=== PATIENT | male | born 1955 | race Caucasian/White ===

== ENCOUNTER 2017-07-22 16:46 | Emergency (ER) | payer OTHER ==
[2017-07-22 16:51] VITALS: BP 115/55; PULSE 86; TEMP 98; BMI 25.7
--- NOTE | 2017-07-22 16:58 | PDOC ---
Rapid Medical Evaluation Chief Complaint: Laceration Time Seen by Provider: 07/22/17 16:52 Medical Evaluation: Allergies Allergy/AdvReac Type Severity Reaction Status Date / Time Penicillins Allergy Severe Swelling Verified 07/22/17 16:49 Vital Signs Temp Pulse Resp BP Pulse Ox 98.0 F 86 18 115/55 97 07/22/17 16:49 07/22/17 16:49 07/22/17 16:49 07/22/17 16:49 07/22/17 16:49 07/22/17 16:52 I have performed a brief in-person evaluation of this patient. The patient presents with a chief complaint of: L pinky laceration 2/2 fan blade , needs tetanus Pertinent physical exam findings:~1-1/2 cm linear lac to ulnar aspect of middle phalanx of L 5th digit I have ordered the following:tetanus The patient will proceed to the ED for further evaluation. Discharge Disposition - Diagnosis Finger laceration Qualifiers: Encounter type: initial encounter Finger: little finger Damage to nail status: without damage Foreign body presence: unspecified Laterality: left Qualified Code(s): S61.217A - Laceration without foreign body of left little finger without damage to nail, initial encounter - Referrals - Patient Instructions - Post Discharge Activity
[2017-07-22] MEDS ORDERED: DIPHTH,PERTUSS(ACELL),TET 0.5 ML DISP.SYRIN IM ONE (17:05)
--- NOTE | 2017-07-22 18:03 | PDOC ---
History of Present Illness - General Chief Complaint: Laceration Stated Complaint: LACERATION Time Seen by Provider: 07/22/17 16:52 History Source: Patient Exam Limitations: No Limitations - History of Present Illness Initial Comments: 07/22/17 18:10 Patient is a 62-year-old male with no past medical history who presents to the emergency department today for laceration to his left fifth finger. Patient states he was trying to fix a ceiling fan when he felt it catch his finger. States he is able to bend and flex the finger. States his last tetanus shot is 5 years ago. Denies fevers, chills, weakness to the finger, numbness and tingling. Past History - Travel Traveled outside of the country in the last 30 days: No Close contact w/someone who was outside of country & ill: No - Past Medical History Allergies/Adverse Reactions: Allergies Allergy/AdvReac Type Severity Reaction Status Date / Time Penicillins Allergy Severe Swelling Verified 07/22/17 16:49 Home Medications: Ambulatory Orders NK [No Known Home Medication] 07/22/17 COPD: No Liver Disease: Yes - Immunization History Immunization Up to Date: Yes - Suicide/Smoking/Psychosocial Hx Smoking History: Current every day smoker Number of Cigarettes Smoked Daily: 20 Information on smoking cessation initiated: No Hx Alcohol Use: No Drug/Substance Use Hx: No Review of Systems - Review of Systems Able to Perform ROS?: Yes Comments:: 07/22/17 18:11 CONSTITUTIONAL: Absent: fever, chills, diaphoresis, generalized weakness, malaise, loss of appetite MUSCULOSKELETAL: Absent: myalgia, arthralgia, joint swelling SKIN: Present: laceration L 5th finger Absent: rash, itching, pallor HEMATOLOGIC/IMMUNOLOGIC: Absent: easy bleeding, easy bruising, lymphadenopathy, frequent infections NEUROLOGIC: Absent: headache, focal weakness or paresthesias, dizziness, unsteady gait, seizure, mental status changes, bladder or bowel incontinence Is the patient limited Sami proficient: No *Physical Exam - Vital Signs Last Vital Signs Temp Pulse Resp BP Pulse Ox 98.0 F 86 18 115/55 97 07/22/17 16:49 07/22/17 16:49 07/22/17 16:49 07/22/17 16:49 07/22/17 16:49 - Physical Exam Comments: 07/22/17 18:12 GENERAL: [The patient is awake, alert, and fully oriented, in no acute distress. ] HEAD: [Normal with no signs of trauma.] EYES: [Pupils equal, round and reactive to light, extraocular movements intact, sclera anicteric, conjunctiva clear.] EXTREMITIES: [Normal range of motion, pt able to fully extend L 5th finger. No exposed tendon no edema.] NEUROLOGICAL: [Normal speech, normal gait.] PSYCH: [Normal mood, normal affect.] SKIN: [3cm laceration superficial, linear, to the proximal phlanges. Warm, Dry , normal turgor, no rashes or lesions noted.] Procedures - Laceration/Wound Repair Left Lateral Dorsal 5th digit Wound Length: 2.6 to 5.0 cm Wound's Depth, Shape: superficial, linear Irrigated w/ Saline: Yes Betadine Prep: Yes Anesthesia: 1% Lidocaine Amount of Anesthetic (ccs): 3 Wound Repaired With: Sutures Suture Size/Type: 5:0 Sterile Dressing Applied: No Medical Decision Making - Medical Decision Making 07/22/17 18:13 Patient is a 62-year-old male with no past medical history, no blood thinner use , right-hand dominant, who presents to the emergency department today for a laceration to his left fifth finger. Patient able to fully flex and extend the finger no tendon involvement. Digital block applied for anesthesia. See procedure note. 8 simple interrupted sutures placed without issue. Return precautions given. Instructed patient to return in 7-10 days to have the stitches removed. Tetanus is currently up-to-date. We'll discharge home at this time. Patient received all discharge instructions and all questions were answered. *DC/Admit/Observation/Transfer Diagnosis at time of Disposition: Finger laceration Qualifiers: Encounter type: initial encounter Finger: little finger Damage to nail status: without damage Foreign body presence: unspecified Laterality: left Qualified Code(s): S61.217A - Laceration without foreign body of left little finger without damage to nail, initial encounter - Discharge Dispostion Disposition: HOME Condition at time of disposition: Stable - Referrals Referrals: Rodolfo Link MD [Primary Care Provider] - - Patient Instructions Printed Discharge Instructions: DI for Laceration Repair Additional Instructions: You had your cut fixed today with stitches. Please return in 7-10 days to have your stitches removed. Avoid soaking the hand. Keep it dry when showering. Please keep the area clean and pat dry. You may use bacitracin once a day. You may take Tylenol or Motrin as needed for pain. Return to the emergency department sooner if you have area of redness around the site, purulent drainage, fevers, or have any changes in your symptoms. - Post Discharge Activity
== END 2017-07-22 18:07 | disposition home or self-care (01) ==
LOC: JERFT 16:46
PROC: 0HQGXZZ Repair Left Hand Skin, External Approach (ICD-10-PCS; principal; 2017-07-22)
DX: S61.217A Laceration without foreign body of left little finger without damage to nail, initial encounter (principal); W45.8XXA Other foreign body or object entering through skin, initial encounter; Y93.9 Activity, unspecified; Y92.9 Unspecified place or not applicable; F17.210 Nicotine dependence, cigarettes, uncomplicated
CPT/HCPCS: 99282-25

== ENCOUNTER 2018-10-05 15:27 | Emergency (ER) | payer OTHER ==
[2018-10-05 15:39] VITALS: BP 135/65; PULSE 67; TEMP 97.8; BMI 25.3
--- NOTE | 2018-10-05 16:44 | PDOC ---
History of Present Illness - General Chief Complaint: Pain, Acute Stated Complaint: RT SHOULDER PAIN Time Seen by Provider: 10/05/18 16:13 History Source: Patient Exam Limitations: No Limitations - History of Present Illness Initial Comments: 10/05/18 16:33 Was attempting to start cord lawnmower when he pulled quickly and felt an acute onset of pain to his right shoulder. States pain shoots down to the mid upper arm and into mid back. Denies numbness or tingling to hand Occurred: reports: just prior to arrival, this afternoon Severity: reports: moderate Pain Location: reports: upper extremity (right shoulder) Modifying Factors: improves with: None Loss of Consciousness: no loss of consciousness Associated Symptoms (Fall): denies symptoms Past History - Travel Traveled outside of the country in the last 30 days: No Close contact w/someone who was outside of country & ill: No - Past Medical History Allergies/Adverse Reactions: Allergies Allergy/AdvReac Type Severity Reaction Status Date / Time Penicillins Allergy Severe Swelling Verified 10/05/18 15:40 Home Medications: Ambulatory Orders NK [No Known Home Medication] 07/22/17 COPD: No Liver Disease: Yes (LIVER CIRROSIS) - Immunization History Immunization Up to Date: Yes - Suicide/Smoking/Psychosocial Hx Smoking History: Never smoked Number of Cigarettes Smoked Daily: 20 Information on smoking cessation initiated: No Hx Alcohol Use: No Drug/Substance Use Hx: No Review of Systems - Review of Systems Able to Perform ROS?: Yes Is the patient limited Wallisian proficient: Yes Constitutional: Yes: Symptoms Reported, See HPI. No: Malaise HEENTM: No: Symptoms Reported Respiratory: Yes: See HPI. No: Symptoms reported Musculoskeletal: Yes: Symptoms Reported, See HPI, Joint Pain, Joint Swelling *Physical Exam - Vital Signs Last Vital Signs Temp Pulse Resp BP Pulse Ox 97.8 F 67 16 135/65 95 10/05/18 15:36 10/05/18 15:36 10/05/18 15:36 10/05/18 15:36 10/05/18 15:36 - Physical Exam General Appearance: Yes: Nourished, Appropriately Dressed, Apparent Distress, Mild Distress HEENT: positive: GIRISH, Normal ENT Inspection, TMs Normal, Pharynx Normal Neck: positive: Supple. negative: Lymphadenopathy (R), Lymphadenopathy (L) Respiratory/Chest: positive: Lungs Clear, Normal Breath Sounds Gastrointestinal/Abdominal: positive: Soft Musculoskeletal: positive: Other. negative: Normal Inspection Extremity: positive: Normal Capillary Refill, Tender, Other (2 right shoulder, has some mild before meals tenderness and mild swelling to the shoulder capsule. Bicep and tricep musculature able to contract. Able to supinate and pronate at wrist, without elbow tenderness. Has strong grasp and neurovascular intact to fingers. Pain is reproduced primarily at shoulder Capsule). negative : Normal Inspection, Normal Range of Motion Integumentary: positive: Normal Color, Dry, Warm Neurologic: positive: commercial counsel II-XII NML intact, Fully Oriented, Alert, Normal Mood/ Affect, Normal Response, Motor Strength 06/18 ED Treatment Course - RADIOLOGY Radiology Studies Ordered: Category Date Time Status SHOULDER-RIGHT [RAD] Stat Radiology 10/05/18 16:31 Ordered Progress Note - Progress Note Progress Note: X-ray negative for fractures or dislocations, we'll provide sling for sprained shoulder and palpable ligamentous injury. Encouraged to follow up with orthopedics this week *DC/Admit/Observation/Transfer Diagnosis at time of Disposition: Sprain of shoulder, right Qualifiers: Encounter type: initial encounter Shoulder sprain type: unspecified sprain Qualified Code(s): S43.401A - Unspecified sprain of right shoulder joint, initial encounter - Discharge Dispostion Disposition: HOME Condition at time of disposition: Stable Decision to Admit order: No - Referrals Referrals: Rodolfo Link MD [Primary Care Provider] - Aden Alvarado MD [Staff Physician] - - Patient Instructions Printed Discharge Instructions: DI for Shoulder Sprain Additional Instructions: Rest, ice to area on and off for 15 minutes 4-6 times a day Avoid heavy lifting or exercise until pain and swelling is resolved or until further directed Keep area highly elevated to reduce swelling Followup with orthopedist in one to 2 days if not improving, if significantly improved may wait one week for followup with orthopedist May use ibuprofen every 6 hours as needed for pain - Post Discharge Activity Forms/Work/School Notes: Back to Work
== END 2018-10-05 17:08 | disposition home or self-care (01) ==
LOC: JERFT 15:27
DX: S42.401A Unspecified fracture of lower end of right humerus, initial encounter for closed fracture (principal); X50.0XXA Overexertion from strenuous movement or load, initial encounter; Y93.H2 Activity, gardening and landscaping; Y92.9 Unspecified place or not applicable
CPT/HCPCS: 73030-TC-RT-FY; 99281-25